=== PATIENT | female | born 1995 | race Caucasian/White ===

== ENCOUNTER 2021-07-12 11:01 | Outpatient (CLI) | payer OTHER, SELFPAY ==
[2021-07-12 18:47] LABS: Hematocrit 45.8 % (37.0-47.0); Hemoglobin 14.7 g/dL (12.0-15.0); Mean Corpuscular HGB Conc 32.1 g/dl (32-36); Mean Corpuscular Hemoglobin 30.1 pg (26-34); Mean Corpuscular Volume 93.7 fl (80-100); Mean Platelet Volume 10.2 fl (7.4-10.4); Platelet Count Result 252 k/mm3 (150-375); Red Blood Count 4.89 M/mm3 (4.2-5.4); Red Cell Distribution Width 12.3 % (11.5-14.5); White Blood Count 5.7 K/mm3 (4.5-10.0)
[2021-07-12 19:18] LABS: Alanine Aminotransferase 21 U/L (4-35); Albumin Level 4.8 g/dL (3.5-5.1); Alkaline Phosphatase 81 U/L (38-126); Anion Gap 10 mmol/L (8-16); Aspartate Amino Transferase 25 U/L (14-36); Bilirubin,Total 0.8 mg/dL (0.2-1.3); Blood Urea Nitrogen 12 mg/dL (7-17); Calcium 9.7 mg/dL (8.4-10.2); Carbon Dioxide 27 mmol/L (22-30); Chloride 103 mmol/L (98-107); Cholesterol 187 mg/dL (0-200); Estimated Glomerular Filt Rate > 60; Glucose 87 mg/dL (65-110); HDL Direct 56 mg/dL; Potassium 4.5 mmol/L (3.4-5.0); Sodium 140 mmol/L (137-145); Triglycerides 63 mg/dL (<150)
[2021-07-12 19:28] LABS: LDL Cholesterol Direct 114 mg/dL
== END 2021-07-12 11:02 | disposition home or self-care (01) ==
LOC: ANHBWCLAB 11:04
PROVIDERS: PCP Family Medicine; Visit Provider Family Medicine
DX: Z00.00 Encounter for general adult medical examination without abnormal findings (principal); U09.9 Post COVID-19 condition, unspecified
CPT/HCPCS: 36415; 80053; 80061; 85027

== ENCOUNTER 2022-07-12 11:27 | Outpatient (CLI) | payer OTHER, SELFPAY ==
[2022-07-12 19:29] LABS: Alanine Aminotransferase 16 U/L (6-35); Albumin Level 4.5 g/dL (3.5-5.1); Alkaline Phosphatase 79 U/L (38-126); Anion Gap 12 mmol/L (8-16); Aspartate Amino Transferase 39 U/L (14-36); Bilirubin,Total 0.5 mg/dL (0.2-1.3); Blood Urea Nitrogen 10 mg/dL (7-17); Calcium 8.7 mg/dL (8.4-10.2); Carbon Dioxide 24 mmol/L (22-30); Chloride 103 mmol/L (98-107); Cholesterol 174 mg/dL (0-200); Estimated Glomerular Filt Rate > 60; Glucose 86 mg/dL (65-110); HDL Direct 42 mg/dL; Potassium 4.1 mmol/L (3.4-5.0); Sodium 139 mmol/L (137-145); Triglycerides 77 mg/dL (<150)
[2022-07-12 19:39] LABS: Basophils Percent Auto 0.3 % (0.2-1.2); Eosinophils Percent Auto 0.1 % (0-4.4); Hematocrit 44.7 % (37.0-47.0); Hemoglobin 14.5 g/dL (12.0-15.0); Immature Granulocyte Absolute 0.02 K/mm3 (0.00-0.031); Immature Granulocyte Percent A 0.3 % (0-0.5); LDL Cholesterol Direct 111 mg/dL; Lymphocytes Absolute Auto 1.36 K/mm3 (0.9-3.2); Mean Corpuscular HGB Conc 32.4 g/dl (32-36); Mean Corpuscular Volume 92.4 fl (80-100); Mean Platelet Volume 10.2 fl (7.4-10.4); Monocytes Absolute Auto 0.5 K/mm3 (0.1-0.6); Monocytes Percent Auto 6.6 % (2.6-8.5); Neutrophils Absolute Auto 5.3 K/mm3 (1.3-6.7); Neutrophils Percent Auto 73.7 % (45.5-73.1); Platelet Count Result 278 k/mm3 (150-375); Red Blood Count 4.84 M/mm3 (4.2-5.4); Red Cell Distribution Width 12.2 % (11.5-14.5); White Blood Count 7.1 K/mm3 (4.5-10.0)
[2022-07-12 19:43] LABS: Vitamin D 25 Hydroxy 24.7 ng/mL
== END 2022-07-12 11:28 | disposition home or self-care (01) ==
LOC: ANHBWCIMG 11:29 → ANHBWCLAB 11:31
PROVIDERS: PCP Family Medicine; Visit Provider Family Medicine
DX: Z00.00 Encounter for general adult medical examination without abnormal findings (principal); G43.909 Migraine, unspecified, not intractable, without status migrainosus; U09.9 Post COVID-19 condition, unspecified
CPT/HCPCS: 36415; 80053; 80061; 82306; 85025

== ENCOUNTER 2023-07-15 09:05 | Outpatient (CLI) | payer OTHER, SELFPAY ==
[2023-07-15 19:28] LABS: Vitamin D 25 Hydroxy 32.6 ng/mL
[2023-07-15 19:29] LABS: Alanine Aminotransferase 33 U/L (6-35); Albumin Level 4.1 g/dL (3.5-5.1); Alkaline Phosphatase 65 U/L (38-126); Anion Gap 8 mmol/L (8-16); Aspartate Amino Transferase 45 U/L (14-36); Bilirubin,Total 0.6 mg/dL (0.2-1.3); Blood Urea Nitrogen 3 mg/dL (7-17); Calcium 9.5 mg/dL (8.4-10.2); Carbon Dioxide 25 mmol/L (22-30); Chloride 105 mmol/L (98-107); Cholesterol 234 mg/dL (0-200); Estimated Glomerular Filt Rate > 60; Glucose 78 mg/dL (65-110); HDL Direct 48 mg/dL; Potassium 4.5 mmol/L (3.4-5.0); Sodium 138 mmol/L (137-145); Triglycerides 171 mg/dL (<150)
[2023-07-15 19:39] LABS: LDL Cholesterol Direct 143 mg/dL
[2023-07-15 19:40] LABS: Hematocrit 43.6 % (37.0-47.0); Hemoglobin 13.6 g/dL (12.0-15.0); Mean Corpuscular HGB Conc 31.2 g/dl (32-36); Mean Platelet Volume 10.5 fl (7.4-10.4); Platelet Count Result 224 k/mm3 (150-375); Red Blood Count 4.54 M/mm3 (4.2-5.4); Red Cell Distribution Width 14.4 % (11.5-14.5); White Blood Count 9.2 K/mm3 (4.5-10.0)
== END 2023-07-15 09:06 | disposition home or self-care (01) ==
PROVIDERS: PCP Family Medicine; Visit Provider Family Medicine
DX: Z00.00 Encounter for general adult medical examination without abnormal findings (principal); E55.9 Vitamin D deficiency, unspecified; G43.909 Migraine, unspecified, not intractable, without status migrainosus
CPT/HCPCS: 36415; 80053; 80061; 82306; 85027

== ENCOUNTER 2023-12-11 06:18 | Inpatient (IN) | payer OTHER, SELFPAY ==
[2023-12-11] VITALS (81 sets, daily range): BP systolic 93–148; BP diastolic 40–125; PULSE 77–154; RESP 18; TEMP 36.6–37.1; O2SAT 97–100; BMI 32.5
[2023-12-11 07:15] LABS: Basophils Percent Auto 0.2 % (0.2-1.2); Eosinophils Percent Auto 0.2 % (0-4.4); Hematocrit 39.2 % (37.0-47.0); Hemoglobin 12.4 g/dL (12.0-15.0); Immature Granulocyte Absolute 0.03 K/mm3 (0.00-0.031); Immature Granulocyte Percent A 0.3 % (0-0.5); Lymphocytes Absolute Auto 1.79 K/mm3 (0.9-3.2); Lymphocytes Percent Auto 18.7 % (18.3-44.2); Mean Corpuscular HGB Conc 31.6 g/dl (32-36); Mean Corpuscular Hemoglobin 27.4 pg (26-34); Mean Corpuscular Volume 86.7 fl (80-100); Mean Platelet Volume 11.4 fl (7.4-10.4); Monocytes Absolute Auto 0.7 K/mm3 (0.1-0.6); Monocytes Percent Auto 7.4 % (2.6-8.5); Neutrophils Percent Auto 73.2 % (45.5-73.1); Platelet Count Result 206 k/mm3 (150-375); Red Blood Count 4.52 M/mm3 (4.2-5.4); Red Cell Distribution Width 14.1 % (11.5-14.5); White Blood Count 9.6 K/mm3 (4.5-10.0)
[2023-12-11] MEDS: miSOPROStol 25 MCG TABLET 50 MCG VAGINAL ×2 (07:24→11:36)
--- NOTE | 2023-12-11 07:29 | LDADM ---
This patient, Marilia Galvan, was admitted to Labor/Delivery/Recovery 106 on 12/11/23 at 06:18. Plans for labor, pain management and were discussed with patient. Patient/family oriented to hospital policies and general routines including ID bracelet, bed and alarms, visiting hours, pain management, procedures, bathroom and other care routines, personal items, smoking policy, room service/diet and guest tray routines, security routines, and visiting hours. Patient/Family are encouraged to report perceived risks to care and to ask questions if they do not understand what they are told or what they should do. See OBIX for further documentation.
--- NOTE | 2023-12-11 07:29 | WPDOBADMIT ---
Obstetrics - Admit Note Admission Note: record reviewed. No pertinent additions to the history and/or any subsequent changes in the physical findings that are not consistent with the expected course of the were found. Additions to the history and/or subsequent changes in the physical findings follow. DUKE, TROY per RN 1/soft, cytotech
[2023-12-11 14:40] LABS: Rapid Plasma Reagin Non-Reactive (NonReactive)
--- NOTE | 2023-12-11 16:25 | P.PNAN_ITS ---
Anes - Eval Pre Procedure Procedure: labor epidural Date/Time: 12/11/23 16:25 Surgeon: lee Preop Diagnosis: pain during labor Pre Op Diagnosis: IOL Patient Data Age: 28 Gender: F Height: 1.5 m Weight: 73 kg Last Vital Signs Temp 36.9 C 12/11/23 13:57 Pulse 99 12/11/23 16:22 Resp 18 12/11/23 08:00 BP 131/69 12/11/23 16:22 O2 Del Method Room Air 12/11/23 07:26 Allergies Allergy/AdvReac Type Severity Reaction Status Date / Time No Known Drug Allergies Allergy unknown Verified 07/15/23 08:45 Home Medications Medication Instructions Recorded Confirmed Type prenat.vits,domenica,orl-ilka-kzcwf 1 tablet PO DAILY 11/18/23 12/11/23 History Laboratory Tests 12/11/23 06:39 WBC 9.6 K/mm3 (4.5-10.0) RBC 4.52 M/mm3 (4.2-5.4) Hgb 12.4 g/dL (12.0-15.0) Hct 39.2 % (37.0-47.0) MCV 86.7 fl (80-100) MCH 27.4 pg (26-34) MCHC 31.6 L g/dl (32-36) RDW 14.1 % (11.5-14.5) Plt Count 206 k/mm3 (150-375) MPV 11.4 H fl (7.4-10.4) Immature Gran % (Auto) 0.3 % (0-0.5) Neut % (Auto) 73.2 H % (45.5-73.1) Lymph % (Auto) 18.7 % (18.3-44.2) Marin % (Auto) 7.4 % (2.6-8.5) Eos % (Auto) 0.2 % (0-4.4) Baso % (Auto) 0.2 % (0.2-1.2) Lymph # (Auto) 1.79 K/mm3 (0.9-3.2) Marin # (Auto) 0.7 H K/mm3 (0.1-0.6) Eos # (Auto) 0.0 K/mm3 (0-0.3) Baso # (Auto) 0.0 K/mm3 (0.0-0.1) Abs Immat Gran (auto) 0.03 K/mm3 (0.00-0.031) Absolute Neuts (auto) 7.0 H K/mm3 (1.3-6.7) Absolute Nucleated RBC 0.000 K/mm3 (0.0-0.012) Nucleated RBC % 0.0 % (0.0-0.2) RPR Non-reactive (NonReactive) Blood Type A Positive Antibody Screen Negative Patient hx anesthesia problems: none Family hx anesthesia problems: none Results Review: All pre-operative results and documents have been reviewed as part of the pre- operative evaluation. [facility] Family History Family History (Updated 11/18/23 @ 15:22 by Elba Marin RN) Mother Hypertension Social History Social History (Updated 07/15/23 @ 08:43 by Monique Pierce MA) Smoking status: Never smoker Alcohol intake: never Substance use: never Do You Feel Safe in your Home?: Yes Lack of Transportation: YES Lack of Food: Never True Current Housing: I Have Housing Concerned About Future Housing: YES Difficulty Paying Gas/Electric Bills: No Difficulty Paying for Meds: No Currently Unemployed: No Education: Associate Degree Difficulty w/ Childcare or Family Care: No Living arrangements: with family Spiritual care concerns: No Exam Day of Procedure 12/11/23 16:25
[2023-12-11] MEDS: LACTATED RINGERS 1,000 ML 125 ML IV CONT ×2 (16:37→19:48)
--- NOTE | 2023-12-11 18:03 | P.PNOB_ITS ---
OB - PN: Subj Subjective Date/time seen: 12/11/23 18:03 Interval history: SVE /60/-2 AROM moderate amount of clear, odorless fluid, IUPC placed, anticipate vaginal deliveries OB - PN: Obj Data Labs 12/11/23 06:39 Labs: Laboratory Results - last 24 hr 12/11/23 06:39 WBC 9.6 RBC 4.52 Hgb 12.4 Hct 39.2 MCV 86.7 MCH 27.4 MCHC 31.6 L RDW 14.1 Plt Count 206 MPV 11.4 H Immature Gran % (Auto) 0.3 Neut % (Auto) 73.2 H Lymph % (Auto) 18.7 Graham % (Auto) 7.4 Eos % (Auto) 0.2 Baso % (Auto) 0.2 Lymph # (Auto) 1.79 Graham # (Auto) 0.7 H Eos # (Auto) 0.0 Baso # (Auto) 0.0 Abs Immat Gran (auto) 0.03 Absolute Neuts (auto) 7.0 H Absolute Nucleated RBC 0.000 Nucleated RBC % 0.0 RPR Non-reactive Blood Type A Positive Antibody Screen Negative OB - PN A/P Time Spent With Patient Time: Total time spent is greater than 50% in coordination of care (as documented) at patient's floor/unit and/or counseling patient:
[2023-12-11] MEDS: OXYTOCIN 30 UNITS/NS 500 ML 30 UNITS/500 ML BAG IV CONT (18:10)
[2023-12-11] MEDS: PHENYLEPHRINE 1,000 MCG/10 ML SYRINGE 100 MCG IV PUSH (21:12)
[2023-12-12] VITALS (126 sets, daily range): BP systolic 100–155; BP diastolic 51–100; PULSE 26–175; RESP 16–18; TEMP 36.6–37.2; O2SAT 73–100
[2023-12-12] MEDS: diphenhydrAMINE HCl INJ 50 MG/ML VIAL 25 MG IV PUSH (04:15)
[2023-12-12] MEDS: OXYTOCIN 10 UNITS/ML VIAL 20 UNITS (07:03)
--- NOTE | 2023-12-12 07:24 | PM.OBPRVD ---
OB - Vaginal Delivery Note Procedure Delivery date: 12/12/23 Induction method: AROM, Per Misoprostol Protocol and Per Pitocin Protocol Delivery monitor: External FHT and Internal Uterine Route of delivery: Episiotomy description: None Laceration Description: Labial (right) Delivery repair: vicryl Specimen: Yes Quantitative Blood Loss (ml): 200 Anesthesia type: Epidural Disposition: Floor Complications: No immediate complications Baby Date of : 12/12/23 Time of : 06:58 Weeks of gestation at delivery: 39 Infant gender: Female presentation: vertex position: Left Occiput Anterior Placenta delivery description: Manual Removal (bedside us done) Cord Vessel Description: 3 Vessels and Delayed Cord Clamping score one minute: 8 score five minutes: 9 Narrative: mother and baby skin to skin in stable condition
[2023-12-12] MEDS: OXYTOCIN 30 UNITS/NS 500 ML 30 UNITS/500 ML BAG 125 UNITS IV CONT (07:48)
[2023-12-12] MEDS: ceFAZolin 2 GM/D5W 50 ML 2 GM/50 ML BAG IVPB (07:52)
[2023-12-12] MEDS: IBUPROFEN 600 MG TABLET PO ×2 (08:35→17:02)
[2023-12-12] MEDS: BENZOCAINE 20% AER SPR (*SP) 56 GM CAN 1 SPRAY TOPICAL (08:36)
[2023-12-12] MEDS: WITCH HAZEL 40 PADS 1 PAD TOPICAL (08:36)
--- NOTE | 2023-12-12 10:08 | PC.NURSE ---
Patient transferred to post room #288 via wheelchair. Support person present. Oriented to unit, room, information board, rooming in, admission packet and security measures. Patient verbalizes understanding.
[2023-12-12] MEDS: ACETAMINOPHEN 325 MG TABLET 650 MG PO (13:32)
[2023-12-12] MEDS: MULTIVIT/MIN/PREN/FOL AC/IRON TABLET 1 TAB PO (17:02)
[2023-12-13 00:24] VITALS: BP 98/56; PULSE 91; RESP 16; TEMP 37.2; O2SAT 99
[2023-12-13 05:48] LABS: Hematocrit 30.1 % (37.0-47.0); Hemoglobin 9.4 g/dL (12.0-15.0)
--- NOTE | 2023-12-13 07:41 | PM.OBPNVD ---
OB - PN: Subj Subjective Date/time seen: 12/13/23 07:41 Interval history: pp day 1 doing well baby doing well OB - PN: Obj Data Labs 12/13/23 05:05 Labs: Laboratory Results - last 24 hr 12/13/23 05:05 Hgb 9.4 L D Hct 30.1 L OB - PN A/P Plan day: 1 Time Spent With Patient Time: Total time spent is greater than 50% in coordination of care (as documented) at patient's floor/unit and/or counseling patient: Review of Systems Review of Systems: All systems reviewed & are unremarkable except as noted in HPI and below Exam Const: General: cooperative and healthy appearing Resp: Effort & Inspection: normal respiratory effort Back/Spine/Pelvis: Back: no CVA tenderness Skin: General skin exam: normal color
[2023-12-13 07:50] VITALS: BP 118/79; PULSE 89; RESP 16; TEMP 36.7; O2SAT 100
--- NOTE | 2023-12-13 08:02 | WPDANLDPN2 ---
Anes-Prog Note L&D Date/Time: 12/13/23 08:02 Comfortable throughout: labor and delivery Neuraxial method: epidural Epidural/Spinal procedure site: clean & non-tender Neuro status: Neuro function grossly intact. Cardiovascular status: normal Respiratory status: normal Airway patency: baseline Mental status: baseline Post-Op hydration status: normal Vital Signs: Last Vital Signs Temp 37.2 C 12/13/23 00:24 Pulse 91 12/13/23 00:24 Resp 16 12/13/23 00:24 BP 98/56 L 12/13/23 00:24 Pulse Ox 99 12/13/23 00:24 O2 Del Method Room Air 12/11/23 07:26 Pain score (VAS): 3 Post-procedural complaints: none Patient feedback: Patient satisfied with anesthetic care.
[2023-12-13] MEDS: MULTIVIT/MIN/PREN/FOL AC/IRON TABLET 1 TAB PO (09:18)
[2023-12-13] MEDS: FERROUS SULFATE 325 MG TABLET DR PO ×2 (09:18→16:56)
[2023-12-13] MEDS: IBUPROFEN 600 MG TABLET PO ×2 (09:18→16:59)
[2023-12-13] MEDS: DOCUSATE SODIUM 100 MG CAPSULE PO ×2 (09:18→16:56)
[2023-12-13] MEDS: LANOLIN (LANSINOH) 7.5 GM CREAM 1 APPLIC TOPICAL (09:19)
--- NOTE | 2023-12-13 10:31 | PC.NURSE ---
[id number] Introductions were made and services were offered to assist with pumping with her personal pump when she is ready. Parents are attempting to rest. RN LC name written communication board for contact. Primary RN aware of visit.
--- NOTE | 2023-12-13 12:55 | PC.NURSE ---
[id number] Mother requested a consult regarding using her personal Zomee pump. Instructions given on cleaning, care, usage, that there should be no pain, pumping schedule for milk production, collection, and storage of human milk. Upon visual assessment it it observed that the 24mm flanges are not appropriate for mothers breast. Mother shared that she is not putting her to the breast and she has not initiated pumping in the first 24+ hours. Nipples were measured to flange fit correctly. Measurements are 13-15mm as education is shared concerning the areola is not the nipple and how to stimulate to see the rise of the nipple. Father of baby is online ordering the correct flange. Parents instructed to not use the flanges provided as that could lead to injury. Recommendations made to learn the skill of hand expression and mother consents and willing to learn. Demonstrated hand expression using the tool, video resources and the handout provided for teaching. Mother is excited to see milk expressed from her body and plans to practice the skill to become efficient at removing milk from the breast at least 8 times in 24 hours with 1-2 times at night. Encouraged understanding of the benefits of skin to skin (demonstrating unwrapping infant and placing upright on her chest), stimulating with massage touch, changing positions to encourage wakefulness, how to watch for early feeding cues, responsive feeding, feeding on demand, not going past 3-4 hours, milk production, building/maintaining a milk supply, expectations of the the milk supply, preventing infection, engorgement, how to treat and when to call if it does occur. resources provided. Mother voiced understanding of the education shared. Reported to the Primary RN.
--- NOTE | 2023-12-13 16:50 | PC.NURSE ---
Patient viewed the discharge video Mother & Baby Care, The First Two Weeks . Patient was given the opportunity and encouraged to ask questions. Patient verbalized understanding of information shared and has been given the mother/baby guide for home reference.
[2023-12-13 20:27] VITALS: BP 127/87; PULSE 99; RESP 20; TEMP 37.1; O2SAT 99
--- NOTE | 2023-12-14 06:02 | P.PNOB_ITS ---
OB - PN: Subj Subjective Date/time seen: 12/14/23 06:02 Interval history: pp day 1 doing well baby doing well Patient comments: no complaints, pain well controlled and tolerating diet OB - PN: Obj Data Labs 12/13/23 05:05 OB - PN A/P Plan day: 2 Plan: routine care and discharge home Time Spent With Patient Time: Total time spent is greater than 50% in coordination of care (as documented) at patient's floor/unit and/or counseling patient: Exam Const: General: comfortable and no acute distress Resp: Effort & Inspection: normal respiratory effort Auscultation: no rale s, no rhonchi and no wheezes Cardio: Rate: regular rate Heart sounds: no click, no murmurs and no rubs GI: GI Palp: Yes Soft to palpation and No Tenderness to palpation present (GI) Auscultation: normal bowel sounds Extrem: General: normal to inspection, no pedal edema and no calf tenderness
--- NOTE | 2023-12-14 06:03 | PM.OBDSVD ---
DS: Admitting Diagnosis Discharge Date 12/14/2023 Admitting Diagnosis term DS: Discharge Diagnosis Discharge Diagnosis (1) Post term , delivered: Code(s): O48.0 - Post-term Status: Acute OB - DS: Summary OB Procedures : None OB Procedures Intrapartum: Spontaneous Vag Delivery OB Procedures: : None Peripartum Data Laceration Description: Labial (right) Episiotomy description: None Time Spent with Patient Time attestation: Total time spent providing and/or coordinating discharge services: DS: Data Data Completed and Pending Pending studies at discharge: Pending at discharge 12/12/23 07:13 Surgical [PTH] Routine Discharge Plan Discharge Discharging Clinician: Augie Murillo Patient Disposition: Home, Self-Care Activity: pelvic rest Diet: regular Patient Instructions: Antibiotic Form, Expression, Collection and Storage of Breast Milk (DC) Stand Alone Forms: General Discharge Information Follow-up/Referrals: Augie Murillo MD [Physician] - Discharge Medications: Continued #2 Tablet 1 tablet PO DAILY Date of admission: 12/11/23 06:18 Primary Care Provider: Rich Mccray Admitting Provider: Augie Murillo Attending physician on admission: Augie Murillo Condition: Stable
[2023-12-14] MEDS: FERROUS SULFATE 325 MG TABLET DR PO (07:10)
[2023-12-14] MEDS: DOCUSATE SODIUM 100 MG CAPSULE PO (07:10)
[2023-12-14] MEDS: ACETAMINOPHEN 325 MG TABLET 650 MG PO (07:10)
[2023-12-14] MEDS: MULTIVIT/MIN/PREN/FOL AC/IRON TABLET 1 TAB PO (07:10)
[2023-12-14 07:12] VITALS: BP 131/90; PULSE 96; RESP 16; TEMP 36.5
[2023-12-16 11:13] VITALS: PULSE 78; RESP 18; TEMP 36.9; O2SAT 100
== END 2023-12-14 10:42 | disposition home or self-care (01) | DRG 807 ==
LOC: ANHLDR 06:27 → ANHOB2 12-12 10:14
PROVIDERS: Admitting Provider Obstetrics & Gynecology; PCP Family Medicine; Referring Provider Advanced Practice Midwife; Visit Provider Obstetrics & Gynecology
DX: O70.0 First degree perineal laceration during delivery (principal); Z37.0 Single live birth; Z3A.39 39 weeks gestation of pregnancy; Z86.16 Personal history of COVID-19
CPT/HCPCS: 36415; 85014; 85018; 85025; 86592; 86850; 86900; 86901; 88307; A9270; J0690; J1200; J2371; J2590; J2795; J7120

== ENCOUNTER 2024-10-19 11:56 | Outpatient (CLI) | payer OTHER, SELFPAY ==
[2024-10-19 12:10] LABS: Hematocrit 43.7 % (37.0-47.0); Hemoglobin 14.1 g/dL (12.0-15.0); Mean Corpuscular HGB Conc 32.3 g/dl (32-36); Mean Corpuscular Hemoglobin 29.5 pg (26-34); Mean Corpuscular Volume 91.4 fl (80-100); Mean Platelet Volume 9.6 fl (7.4-10.4); Platelet Count Result 225 k/mm3 (150-375); Red Blood Count 4.78 M/mm3 (4.2-5.4); Red Cell Distribution Width 12.1 % (11.5-14.5); White Blood Count 5.3 K/mm3 (4.5-10.0)
[2024-10-19 13:06] LABS: Alanine Aminotransferase 16 U/L (6-35); Albumin Level 4.4 g/dL (3.5-5.1); Alkaline Phosphatase 86 U/L (38-126); Anion Gap 8 mmol/L (4-12); Aspartate Amino Transferase 23 U/L (14-36); Bilirubin,Total 0.6 mg/dL (0.2-1.3); Blood Urea Nitrogen 11 mg/dL (7-17); Calcium 9.4 mg/dL (8.4-10.2); Carbon Dioxide 28 mmol/L (22-30); Chloride 106 mmol/L (98-107); Cholesterol 139 mg/dL (0-200); Estimated Glomerular Filt Rate > 60; Glucose 84 mg/dL (65-110); HDL Direct 47 mg/dL; Potassium 4.3 mmol/L (3.4-5.0); Sodium 142 mmol/L (137-145); Triglycerides 44 mg/dL (<150)
[2024-10-19 13:17] LABS: LDL Cholesterol Direct 72 mg/dL
--- OUTSIDE RECORDS SUMMARY | 2024-10-19 14:38 | XMS_ITS | Clinical Summary ---
Author Organization [facility] Address [address] [place] [address] Phone Care Team Providers Care Inspector Process Name Role Phone Rich Mccray MD Primary Care Provider [phone] Allergies No known active allergies Medications No known medications Immunizations Immunization Administration Dates Next Due TDAP Vaccine 02/08/2022 Social History Tobacco Use Types Packs/Day Years Used Date Smoking Tobacco: Never Smokeless Tobacco: Never Comments No Sex and Gender Information Value Date Recorded Sex Assigned at Not on file Legal Sex Female 9:03 AM CDT Gender Identity Not on file Sexual Orientation Not on file Last Filed Vital Signs Vital Sign Reading Time Taken Comments Blood Pressure 133/87 02/08/2022 9:10 AM CDT Pulse 114 02/08/2022 9:10 AM CDT Temperature 37.1 C (98.7 F) 02/08/2022 9:10 AM CDT Respiratory Rate 18 02/08/2022 9:10 AM CDT Oxygen Saturation 98% 02/08/2022 9:10 AM CDT Inhaled Oxygen Concentration - - Weight 56.7 kg (125 lb) 02/08/2022 9:10 AM CDT Height 149.9 cm (4' 11 ) 02/08/2022 9:10 AM CDT Body Mass Index 25.25 02/08/2022 9:10 AM CDT Plan of Treatment Not on file Insurance [employer] [facility] Care Teams Inspector Process Relationship Specialty Start Date End Date Rich Mccray MD [address] [place] [id number] PCP - General Family Medicine 02/08/22
--- OUTSIDE RECORDS SUMMARY | 2024-10-19 14:38 | XMS_ITS | Referral Summary ---
Author Organization [facility] [address] Address [address] [place] [id number] Care Team Providers Care Bead Forming Machine Operator Name Role Phone Monique Mayorga MD Primary Care Provider [phone] Allergies No known active allergies Medications No known medications Active Problems No known active problems Social History Tobacco Use Types Packs/Day Years Used Date Smoking Tobacco: Never Assessed Personal Safety Answer Date Recorded Getting School Help Needed Not on file 11/14 Comments Unknown Sex and Gender Information Value Date Recorded Sex Assigned at Not on file 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
--- OUTSIDE RECORDS SUMMARY | 2024-10-19 14:38 | XMS_ITS | Clinical Summary ---
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
== END 2024-10-19 11:57 | disposition home or self-care (01) ==
LOC: ANHLAB 11:57
PROVIDERS: PCP Family Medicine; Visit Provider Family Medicine
DX: Z00.00 Encounter for general adult medical examination without abnormal findings (principal); G43.909 Migraine, unspecified, not intractable, without status migrainosus; E55.9 Vitamin D deficiency, unspecified
CPT/HCPCS: 36415; 80053; 80061; 82306; 82607; 85027